=== PATIENT | female | born 1990 | race Caucasian/White ===

== ENCOUNTER 2021-02-23 08:00 | Outpatient (CLI) | payer OTHER | END 2021-02-23 23:59 | LOC: LAB 08:00 | PROVIDERS: ATTEND Physician Assistant Medical | DX: R05.9 Cough, unspecified (principal); Z20.822 Contact with and (suspected) exposure to COVID-19 ==

== ENCOUNTER 2021-08-21 15:24 | Emergency (ER) | payer OTHER ==
[2021-08-21 15:36] VITALS: BP 128/83
--- NOTE | 2021-08-21 16:05 | ED Physician Documentation ---
PD HPI LOWER EXT INJURY - Stated complaint Stated Complaint: RT TOE INJ/PX - Chief complaint Chief Complaint: Ext Problem - History obtained from History obtained from: Patient - History of Present Illness PD HPI LOW EXT INJURY LOCATION: Right, Toe (great toe nailbed with nail nearly avulsed off. Patient with history of thickened nail presumed from fungal infection. Typically comes off in layers. Last night, she was pulling off a layer and a thicker amount came off and there was bleeding at the nailbed. core oven tender, part of nail still on.) Type of injury: Other (she was peeling off thickened peeling layer of nailbed when started bleeding and hurting.) Where injury occurred: Home Timing - onset: Last night (for current problem, but has had thickened peeling nail in that toe for years.) Timing - details: Gradual onset, Still present Associated symptoms: No: Weakness, Numbness, Swelling Similar symptoms before: No diagnosis (presumed fungal infection of toenail for years but has not peeled off this much nor bled.) Recently seen: Not recently seen Review of Systems Neurologic: denies: Focal weakness, Numbness PD PAST MEDICAL HISTORY - Past Medical History Cardiovascular: None Endocrine/Autoimmune: None - Present Medications Home Medications: Ambulatory Orders Medication Instructions Recorded Confirmed Tea Tree Oil [Tristanian Tea Tree 1 drops TP BID 60 Days #30 ml 08/21/21 Oil] Terbinafine HCl [Lamisil At] 1 applic TP BID 60 Days #30 gm 08/21/21 - Allergies Allergies/Adverse Reactions: Allergies Allergy/AdvReac Type Severity Reaction Status Date / Time No Known Drug Allergies Allergy Verified 08/21/21 15:34 PD ED PE NORMAL - Vitals Vital signs reviewed: Yes - General General: Alert and oriented X 3, No acute distress, Well developed/nourished - Derm Derm: Normal color, Warm and dry - Extremities Extremities: Other (right great toenail bed with some thickened tissue, but is softer so feels like the nail is avulsed with just small part of it at base. This is easily loose and is snipped with scissors. Some rawness of the base with dried blood. ) - Neuro Neuro: Alert and oriented X 3, No motor deficit, No sensory deficit Results - Vitals Vitals: Vital Signs - 24 hr 08/21/21 15:34 Temperature 36.5 C Heart Rate 81 Respiratory 16 Rate Blood Pressure 128/83 H O2 Saturation 99 Oxygen O2 Source Room air PD MEDICAL DECISION MAKING - ED course Complexity details: considered differential (This does appear thickened tissue consistent with fungal infection. The nail appears mainly avulsed off with a small remnant that is trimmed off. We can use topical antifungals at the patient request and this may work.), d/w patient ED course: There was some dried blood and nailbed tissue that looked raw and ready to bleed. I covered this with Monsel solution and no bleeding subsequently. Band- Aid applied. Departure - Departure Disposition: 01 Home, Self Care Clinical Impression: Nail fungal infection Avulsed toenail Qualifiers: Encounter type: initial encounter Qualified Code(s): S91.209A - Unspecified open wound of unspecified toe(s) with damage to nail, initial encounter Condition: Stable Record reviewed to determine appropriate education?: Yes Follow-Up: [facility] [Provider Group] Prescriptions: Tea Tree Oil [Tristanian Tea Tree Oil] 1 drops TP BID 60 Days #30 ml Terbinafine HCl [Lamisil At] 1 applic TP BID 60 Days #30 gm Comments: It does look like your nail is for the most part avulsed off. There is some thickening of the base consistent with the fungal infection you have noted. At this point with the essentially nail off, we can try treating it topically with antifungal medications and see if the new nail will grow out without infection. Use terbinafine cream a very small dab to the nailbed twice daily. Follow that with dropper to of tea tree oil to the area as well twice daily. You will need to continue this for a couple of months as a new nail is growing out, and see if its growing more normally without fungal infection. Follow-up with your primary care if not doing well with that and it grows back with a fungal thickening. Subsequent treatment could be oral medication instead but that has more potential side effects and problems. I transmitted your prescriptions to [facility] pharmacy.
== END 2021-08-21 16:36 | disposition home or self-care (01) ==
LOC: ED 15:24
DX: S91.201A Unspecified open wound of right great toe with damage to nail, initial encounter (principal); X58.XXXA Exposure to other specified factors, initial encounter; B35.3 Tinea pedis
CPT/HCPCS: 99282

== ENCOUNTER 2022-02-25 08:00 | Outpatient (CLI) | payer OTHER ==
[2022-02-25 18:02] LABS: BASOPHILS # (AUTO) 0.1 10^3/uL (0.0-0.1); BASOPHILS % (AUTO) 0.8 %; EOSINOPHILS # (AUTO) 0.2 10^3/uL (0.0-0.7); EOSINOPHILS % (AUTO) 2.7 %; HCT - HEMATOCRIT 40.7 % (37.0-47.0); HGB - HEMOGLOBIN 13.5 g/dL (12.0-16.0); LYMPHOCYTES # (AUTO) 2.4 10^3/uL (1.5-3.5); LYMPHOCYTES % (AUTO) 28.3 %; MEAN CORPUSCULAR HEMOGLOBIN 29.9 pg (27.0-31.0); MEAN CORPUSCULAR HGB CONC 33.2 g/dL (32.0-36.0); MEAN PLATELET VOLUME 10.9 fL (7.9-10.8); MONOCYTES # (AUTO) 1.1 10^3/uL (0.0-1.0); MONOCYTES % (AUTO) 12.7 %; NEUTROPHILS # (AUTO) 4.7 10^3/uL (1.5-6.6); NEUTROPHILS % (AUTO) 55.3 %; PLT - PLATELET COUNT 270 10^3/uL (130-450); RED BLOOD COUNT 4.52 10^6/uL (4.20-5.40); RED CELL DISTRIBUTION WIDTH 12.1 % (12.0-15.0); WHITE BLOOD COUNT 8.6 x10^3/uL (4.8-10.8)
[2022-02-25 18:30] LABS: THYROID STIMULATING HORMONE 1.59 uIU/mL (0.34-5.60)
[2022-02-25 18:38] LABS: ALBUMIN 4.5 g/dL (3.2-5.5); ALBUMIN/GLOBULIN RATIO 1.5 (1.0-2.2); BILIRUBIN,TOTAL 0.5 mg/dL (0.2-1.0); CALCIUM 9.3 mg/dL (8.5-10.3); CREATININE 0.8 mg/dL (0.4-1.0); POTASSIUM 3.5 mmol/L (3.5-5.0); TOTAL PROTEIN 7.5 g/dL (6.7-8.2)
== END 2022-02-25 23:59 | disposition home or self-care (01) ==
LOC: LAB.N 08:00
PROVIDERS: ATTEND Family Medicine
DX: D64.9 Anemia, unspecified (principal); N94.6 Dysmenorrhea, unspecified; R55 Syncope and collapse
CPT/HCPCS: 36415; 80053; 83540; 84443; 84466; 85025

== ENCOUNTER 2023-07-27 12:30 | Outpatient (CLI) | payer OTHER ==
[2023-07-27 18:02] LABS: BASOPHILS # (AUTO) 0.1 10^3/uL (0.0-0.1); BASOPHILS % (AUTO) 1.5 %; EOSINOPHILS # (AUTO) 0.1 10^3/uL (0.0-0.7); HCT - HEMATOCRIT 39.6 % (37.0-47.0); HGB - HEMOGLOBIN 13.2 g/dL (12.0-16.0); LYMPHOCYTES # (AUTO) 1.5 10^3/uL (1.5-3.5); LYMPHOCYTES % (AUTO) 26.3 %; MEAN CORPUSCULAR HEMOGLOBIN 30.3 pg (27.0-31.0); MEAN CORPUSCULAR HGB CONC 33.3 g/dL (32.0-36.0); MEAN PLATELET VOLUME 10.9 fL (7.9-10.8); MONOCYTES # (AUTO) 0.4 10^3/uL (0.0-1.0); MONOCYTES % (AUTO) 6.5 %; NEUTROPHILS # (AUTO) 3.8 10^3/uL (1.5-6.6); NEUTROPHILS % (AUTO) 64.4 %; PLT - PLATELET COUNT 334 10^3/uL (130-450); RED BLOOD COUNT 4.35 10^6/uL (4.20-5.40); RED CELL DISTRIBUTION WIDTH 11.9 % (12.0-15.0); WHITE BLOOD COUNT 5.9 x10^3/uL (4.8-10.8)
[2023-07-27 18:15] LABS: ALBUMIN 4.6 g/dL (3.2-5.5); ALBUMIN/GLOBULIN RATIO 1.7 (1.0-2.2); BILIRUBIN,TOTAL 0.8 mg/dL (0.2-1.0); CALCIUM 9.7 mg/dL (8.5-10.3); CREATININE 0.8 mg/dL (0.6-1.3); POTASSIUM 3.5 mmol/L (3.5-4.5); TOTAL PROTEIN 7.3 g/dL (6.4-8.9)
== END 2023-07-27 13:41 | disposition home or self-care (01) ==
LOC: LAB.N 12:30
PROVIDERS: ATTEND Physician Assistant Medical
DX: R10.13 Epigastric pain (principal)
CPT/HCPCS: 36415; 80053; 82150; 83690; 85025